=== PATIENT | male | born 1970 | race Caucasian/White ===

== ENCOUNTER 2021-05-11 10:44 | Emergency (ER) | payer OTHER, SELFPAY ==
[2021-05-11 10:44] VITALS: BP 190/98; PULSE 75; RESP 18; TEMP 36.5; O2SAT 99; BMI 56.8
--- NOTE | 2021-05-11 11:01 | RAD_ITS ---
STUDY: X-RAY - CERVICAL SPINE REASON FOR EXAM: Male, 51 years old. Atraumatic pain TECHNIQUE: 3 view(s) of the cervical spine were obtained. COMPARISON: None FINDINGS: Normal anterior atlantoaxial articulation. Normal odontoid process. There is reversal of the normal cervical lordosis. Normal vertebral bodies and endplates. Mild degree of disc space narrowing at the C5-C6 and C6-C7 levels. Normal visualized intervertebral neuroforamina. The soft tissue structures are unremarkable. RAD/Cerv Spine 2 or 3 Views IMPRESSION: Reversal of the normal cervical lordosis. Mild degree of disc space narrowing at the C5-C6 and C6-C7 levels. Electronically Signed: Edide Mccoy MD at 12:16 EST , Service support ,
--- NOTE | 2021-05-11 11:04 | EX.ED.UPPERE ---
HPI History of Present Illness Chief Complaint: Upper Extremity Injury Detail of Chief Complaint: Right upper shoulder pain without injury Informant: patient Onset/Context/Timing Onset: Weeks Context: Gradual Onset Timing: Intermittent Quality of Pain: Dull and Aching Current Severity: Mild Maximum Severity: Mild Associated Symptoms Associated Symptoms: Negative for Parasthesia, Weakness and Loss of Funtion Narrative Narrative: 51-year-old male whose had right upper shoulder pain for last 2 weeks. No fall injury or trauma. He is right-hand dominant. Saw his primary care physician who placed him on prednisone for 6 days he said it improved but the longer he is been off the prednisone more returns. Denies any specific neck pain. Today has noticed some mild tingling in his right thumb and index finger. No prior neck or back surgery. He denies chest pain, shortness of breath or other symptoms. Prior similar symptoms: No Recent Illness/Hospitalization: No PFSH PFS Medical History HTN (hypertension) Home Medications amlodipine 2.5 mg PO DAILY 05/11/21 [History Last Taken Unknown] lisinopril-hydrochlorothiazide 1 tab PO DAILY 05/11/21 [History Last Taken Unknown] metaxalone [Skelaxin] 800 mg PO TID 7 Days #21 tab 05/11/21 [Rx Last Taken Unknown] Allergy/AdvReac Type Severity Reaction Status Date / Time No Known Allergies Allergy Verified 05/11/21 10:44 Surgical History Hx of tonsillectomy Social History Smoking Status: Never smoker ROS ROS ED ROS Narrative Denies. Review of Systems ROS Unobtainable: Denies due to encephalopathy Constitutional Constitutional ED: Denies fever(s) Eyes Eyes: Denies change in vision ENT ENT ED: Denies ear pain Cardiovascular Cardiovascular: Denies chest pain Respiratory/Chest Respiratory/Chest: Denies dyspnea Gastrointestinal Gastrointestinal: Denies abdominal pain Genitourinary Genitourinary ED: Denies dysuria Musculoskeletal Musculoskeletal: Reports back pain; Denies myalgias Integumentary Denies rash Neurologic Neurologic: Denies headache(s) Psychiatric Psychiatric: Denies depression Endocrine Endocrinology: Denies polyuria Hematologic/Lymphatic Hematologic/Lymphatic: Denies easy bruising Allergic/Immunologic Allergic/Immunologic ED: Denies urticaria EXAM Physical Exam Narrative Exam Narrative: Middle-age male no acute distress. Vital signs stable afebrile. He does have a history of hypertension. His blood pressure has been running well at home. Today is 190/98. HEENT exam unremarkable. Neck nontender. Trachea midline. Lungs clear to auscultation bilaterally. Heart regular rhythm rate about 75 no murmur. Abdomen soft nontender normal bowel sounds no peritoneal signs. Moving all 4 extremities. 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 Dorsi plantarflexion intact. Both upper and lower extremities neurovascularly intact. Normal motor strength and function. Normal range of motion. Back exam is mildly reproducible tenderness along his scapula. Is not significant. There is no ecchymosis or bruising. No redness or warmth. Neurologically is awake and alert with no focal motor or sensory deficits. Subjectively he has some tingling in his right thumb and index finger but they have normal motor strength and range of motion. Const Vital Signs: 05/11/21 10:44 Temperature 97.7 F L Temperature Source Temporal Pulse Rate 75 Respiratory Rate 18 Blood Pressure 190/98 H Blood Pressure Mean 128 Pulse Ox 99 Oxygen Delivery Method Room Air Positive well nourished and well developed; Negative for cachectic, contractures or unkempt General Appearance ED: well developed and NAD; Negative for unkempt, cachectic, contractures, cyanotic or diaphoretic Nutritional Appearance: Negative for cachectic HEENT Reports moist mucous membranes normocephalic; Negative for atraumatic, trauma or tenderness Eyes PERRL and EOMs intact bilaterally Neck full ROM and supple General: Negative for tenderness Chest Wall inspection of chest normal and palpation of chest normal Resp normal respiratory effort and clear to auscultation bilaterally Effort and Inspection: Negative for pain with movement Auscultation: Negative for rales, rhonchi or wheezes Cardio regular rate, regular rhythm, S1 normal heart sound, S2 normal heart sound and no murmurs GI non-tender, non-distended and no masses Inspection: Negative for abdominal distention Auscultation: normoactive bowel sounds Palpation: soft; Negative for tender, guarding or rebound tenderness present Back/Spine no CVA tenderness Back/Spine Narrative: Mild right posterior shoulder soft tissue tenderness. General Back: Negative for CVA tenderness Cervical Spine: Negative for cervical spine tenderness Thoracic Spine / Upper Back: Negative for thoracic spinal tenderness Extremity normal to inspection and full ROM General Extremety ED: Negative for edema or other findings General Extremity: Negative for edema or other findings Right Upper Extremity: Negative for shoulder joint, clavicle, bony scapula, upper arm, elbow joint, lower arm, wrist or hand and digits Neuro oriented x3, CN's II-XII intact bilaterally, moves all extremities, no focal motor deficits and no sensory deficits noted Sensorium / Orientation: alert, oriented to person, oriented to place and oriented to time; Negative for orientation impaired, lethargic or stuporous Psych mental status grossly normal Appearance: Negative for unkempt Attitude: No agitated Mood & Affect: Negative for depressed or tearful Skin Lesions: no lesions Rashes: no rashes Trauma: no lacerations or abrasions; Negative for abrasion or laceration MDM MDM MDM Narrative Medical decision making narrative: 51-year-old male with upper right shoulder pain for 2 weeks. Most likely musculoskeletal etiology. Heart and lung exam is normal. He is never had any history of cervical spine or disc disease. We will obtain an x-ray of his neck to see if there is any degenerative changes. He does not need any blood work or other imaging. Radiography Chest X-Ray - ED: 1 View, Read by ED Physician, Normal, Lungs, Mediastinum, Bony Structures and No Acute Disease Diagnostic Testing: C-spine x-ray was obtained 3 views interpreted by myself shows no acute abnormality. Normal vertebral bodies. No signs of degenerative disc disease or arthritis. Discharge Plan Triage Chief Complaint: Upper Extremity Injury ED Provider: Saúl Chang Dx/Rx/DC Orders Clinical Impression: Acute shoulder pain, History of hypertension Prescriptions: New metaxalone [Skelaxin] 800 mg tablet 800 mg PO TID 7 Days Qty: 21 RF: 0 No Action amlodipine 2.5 mg Tablet 2.5 mg PO DAILY RF: 0 lisinopril-hydrochlorothiazide 20-25 mg Tablet 1 tab PO DAILY RF: 0 Primary Care Provider: Jose Pichardo Referrals: Calixto Oleary MD [STAFF PHYSICIAN] - 10-14 Days if not better Clint Del Real MD [STAFF PHYSICIAN] - 10-14 Days if not better Jose Pichardo DO [Primary Care Provider] - 10-14 Days if not better Activity Restrictions/Additional Instructions: This seems to be musculoskeletal in etiology. Motrin 2 pills twice a day for pain and inflammation and/or Tylenol. Watch your blood pressure taken twice daily make sure you are calm and relaxed and recorded if it continues to be elevated follow-up. Hot shower, warm bath, and massage to your back your shoulder help relax the muscles. Skelaxin as a muscle relaxant 1 pill 3 times a day till gone. Follow-up with either your primary care physician or Dr. Oleary or Dr. Del Real if not improving. Disposition Disposition: Home, Self Care
== END 2021-05-11 11:50 | disposition home or self-care (01) ==
PROVIDERS: Emergency Provider Emergency Medicine; PCP Family Medicine
DX: M25.511 Pain in right shoulder (principal); R20.2 Paresthesia of skin; I10 Essential (primary) hypertension; Z79.899 Other long term (current) drug therapy
CPT/HCPCS: 72040; 99282

== ENCOUNTER → 2021-10-14 | Outpatient (CLI) | payer OTHER, SELFPAY ==
--- NOTE | 2021-10-14 08:13 | MRI_ITS ---
STUDY: MRI CERVICAL SPINE WITH AND WITHOUT CONTRAST REASON FOR EXAM: Male, 51 years old. ABNORMAL SIGNAL -- PLEASE COMPARE TO RONALD 06/10/21 TECHNIQUE: Standardized fat and water weighted pulse sequences were obtained in the sagittal and axial following intravenous administration of 38 mL Dotarem.. COMPARISON: MRI cervical spine without contrast 06/10/2021. FINDINGS: Normal foramen magnum and brainstem-cervical cord junction. Normal craniovertebral junction. Normal anterior atlantoaxial articulation. Normal odontoid process. Mild cervical kyphosis is unchanged. Normal vertebral bodies and posterior osseous elements. C2-3: Normal endplates. Normal disc height, signal and morphology. Normal central canal and intervertebral neural foramina. C3-4: Normal endplates. Normal disc height, signal and morphology. Normal central canal and intervertebral neural foramina. C4-5: Normal endplates. Normal disc height, signal and morphology. Normal central canal and intervertebral neural foramina. C5-6: Normal endplates. Normal disc height, signal and morphology. Normal central canal and intervertebral neural foramina. C6-7: Normal endplates. Normal disc height. Mild increase in size of right posterior disc extrusion causing displacement of the right C7 nerve root sleeve. Normal central canal and left intervertebral neural foramen. C7-T1: Normal endplates. Normal disc height, signal and morphology. Normal central canal and intervertebral neural foramina. T1-T2 and T2-T3: (Sagittal only). Normal endplates. Normal disc height, signal and morphology. Normal central canal and intervertebral neural foramina. Normal cervical cord. Normal upper thoracic spinal cord. Following IV contrast administration, there are no abnormal enhancing lesions intradurally and extradurally. Normal visualized soft tissue structures. MRI/Spine Cervical W/WO Contrast IMPRESSION: 1. Mild increase in size of right C6-C7 posterior disc extrusion causing displacement of the right C7 nerve root sleeve. 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 2. Normal remainder of the cervical spine. 3. Normal cervical spinal cord. 4. No abnormal enhancing lesions intradurally and extradurally. Electronically Signed: Abelino Early MD at 12:45 EDT ,
[2021-10-14 08:36] LABS: CREATININE FINGERSTICK < 0.9 mg/dL (0.70-1.30); EGFR FINGERSTICK > 60.0000 mL/min (>60)
== END | disposition home or self-care (01) ==
PROVIDERS: PCP Family Medicine; Visit Provider Internal Medicine Hematology & Oncology
DX: M50.223 Other cervical disc displacement at C6-C7 level (principal)
CPT/HCPCS: 72156; A9575

== ENCOUNTER → 2024-11-28 | Outpatient (CLI) | payer OTHER, SELFPAY | END | disposition home or self-care (01) | LOC: MFPLAB 08:41 | PROVIDERS: PCP Family Medicine; Referring Provider Family Medicine; Visit Provider Family Medicine | DX: E66.01 Morbid (severe) obesity due to excess calories (principal) | CPT/HCPCS: 36415; 83036 ==